=== PATIENT | male | born 1970 | race Caucasian/White ===

== ENCOUNTER 2021-01-02 00:08 | Day surgery (SDC) | payer BC, SELFPAY ==
[2020-12-14 14:41] VITALS: BMI 43.7
[2021-01-02 08:51] VITALS: BP 141/92; PULSE 97; RESP 20; TEMP 36.6; O2SAT 97
[2021-01-02] MEDS: LACTATED RINGERS 1,000 ML 150 ML IV CONT (09:00)
--- NOTE | 2021-01-02 09:26 | WPDGICN ---
Assessment and Plan Assessment and plan (1) Encounter for screening colonoscopy: Code(s): Z12.11 - Encounter for screening for malignant neoplasm of colon Status: Acute Assessment and Plan: Patient presents for screening colonoscopy. Further recommendations will be given after endoscopy. GI Consult Note Consult date/time: 01/02/21 09:26 HPI: Nato Felix III is a 50 year old male presents for screening colonoscopy. Patient's current weight appetite and bowel movements are normal. He denies abdominal pain. He has had no bleeding. Family history is noncontributory. Denies any blood in his stools. Past medical history is significant that he was a kidney donor. He has had several knee surgeries. Review of Systems Review of Systems: All systems reviewed & are unremarkable except as noted in HPI and below PMFSH Social History Social History Smoking status: Never smoker Alcohol intake: former Substance use: never Substance use type: does not use Living arrangements: with family Spiritual care concerns: No Meds Home Medications and Allergies Home Medications Medication Instructions Recorded Confirmed Type amlodipine 10 mg PO DAILY 12/14/20 12/14/20 History clobetasol 1 applic TOPICAL DAILY 12/14/20 12/14/20 History lisinopril 40 mg PO DAILY 12/14/20 12/14/20 History Allergies Allergy/AdvReac Type Severity Reaction Status Date / Time No Known Allergies Allergy Verified 01/02/21 08:49 Vital Signs Vital Signs - 24 hr 01/02/21 08:51 Temperature 97.9 F Pulse Rate 97 Respiratory Rate 20 Blood Pressure 141/92 H Pulse Oximetry 97 Exam Narrative: Physical exam reveals patient to be alert. Vital signs stable. HEENT exam is unremarkable. Patient is anicteric. Lungs are clear to auscultation and percussion. Heart is without murmur or extra sounds. Abdominal exam bowel sounds are present soft nontender with no organomegaly. Digital external rectal exam is normal.
--- NOTE | 2021-01-02 09:37 | WPDANESEPPF ---
Anes - Initial Pre Proc Eval Procedure: Operation Date: 01/02/21 09:30 Proposed Procedures p Screening Colonoscopy - Juan Manuel Austin MD Date/Time: 01/02/21 09:37 Surgeon: Juan Manuel Austin MD Pre Op Diagnosis: neoplasm screening Patient Data Age: 50 Gender: M Height: 1.68 m Weight: 97.9 kg Last Vital Signs Temp 97.9 F 01/02/21 08:51 Pulse 97 01/02/21 08:51 Resp 20 01/02/21 08:51 BP 141/92 H 01/02/21 08:51 Pulse Ox 97 01/02/21 08:51 Allergies Allergy/AdvReac Type Severity Reaction Status Date / Time No Known Allergies Allergy Verified 01/02/21 08:49 Home Medications Medication Instructions Recorded Confirmed Type amlodipine 10 mg PO DAILY 12/14/20 12/14/20 History clobetasol 1 applic TOPICAL DAILY 12/14/20 12/14/20 History lisinopril 40 mg PO DAILY 12/14/20 12/14/20 History Patient hx anesthesia problems: none Family hx anesthesia problems: none Results Review: All pre-operative results and documents have been reviewed as part of the pre-operative evaluation. [facility] Past Medical History Medical History (Updated 01/02/21 @ 09:30 by Christian Jiménez MD) Hypertension KEATON (obstructive sleep apnea) Social History Social History Smoking status: Never smoker Alcohol intake: former Substance use: never Substance use type: does not use Living arrangements: with family Spiritual care concerns: No Anes - Eval Final PreProcedure Day of Procedure 01/02/21 09:37 Patient weight: obese Heart: regular rate and rhythm Lungs: clear to auscultation Airway: Mallampati scale class II Neurological: alert and oriented Last oral intake: >/= 8 hours ASA classification: III Emergent: no Anesthetic plan: proceed Anesthesia type and monitoring: general GIVS and standard monitoring Results Review: All pre-operative results and documents have been reviewed as part of the pre-operative evaluation. Informed Consent: The patient's anesthetic plan and its attendant risks and benefits were discussed with the patient/family/POA. Questions were solicited and answers provided to the satisfaction of the patient/family/POA.
[2021-01-02] MEDS: SIMETHICONE ORAL SUSPENSION 20 MG/0.3 ML 30 ML BOTTLE 0.6 ML IRRIGATION (09:44)
[2021-01-02 09:52] VITALS: BP 132/92; PULSE 98; RESP 19; O2SAT 98
[2021-01-02 10:02] VITALS: BP 130/91; PULSE 71; RESP 24; O2SAT 99
[2021-01-02 10:12] VITALS: BP 132/92; PULSE 76; RESP 20; O2SAT 99
== END 2021-01-02 10:25 | disposition home or self-care (01) ==
PROVIDERS: Visit Provider Internal Medicine Gastroenterology
PROC: 0DJD8ZZ Inspection of Lower Intestinal Tract, Via Natural or Artificial Opening Endoscopic (ICD-10-PCS; CPT 45378; principal; 2021-01-02 09:30)
DX: Z12.11 Encounter for screening for malignant neoplasm of colon (principal); K57.30 Diverticulosis of large intestine without perforation or abscess without bleeding; I10 Essential (primary) hypertension; G47.33 Obstructive sleep apnea (adult) (pediatric); E66.9 Obesity, unspecified; Z68.34 Body mass index [BMI] 34.0-34.9, adult
CPT/HCPCS: 45378; J2704; J7120